=== PATIENT | male | born 1990 | race Caucasian/White ===

== ENCOUNTER 2021-07-23 12:40 | Emergency (ER) | payer OTHER, SELFPAY ==
[2021-07-23 12:47] VITALS: BP 127/73; PULSE 60; RESP 16; TEMP 35.8; O2SAT 98
[2021-07-23] MEDS: predniSONE 20 MG TABLET 60 MG PO (14:46)
[2021-07-23] MEDS: COLCHICINE 0.6 MG TABLET PO (14:46)
[2021-07-23] MEDS: KETOROLAC 30 MG/ML VIAL 15 MG IM (14:46)
--- NOTE | 2021-07-23 14:52 | ED.EXTPRO ---
HPI - Extremity Problem <JENNY Wright - Last Filed: 07/23/21 14:57> General Chief complaint: Extremity Problem,Nontraumatic Stated complaint: Thinks has terftoe? wants foot checked Time Seen by Provider: 07/23/21 14:19 Source: patient Mode of arrival: Ambulatory History of Present Illness HPI Narrative: This is a 31-year-old male with a history of gout in the past who presents to the emergency department complaining of tenderness to right great toe MTP joint. Patient states that he has the [employer], was not able to get into [employer] [facility] was cleared for his one month trip which leaves in three days but has not been evaluated if he is fit for duty for this flare. Patient states that his last gout flare was approximately one year ago, he is mostly vegetarian, states that he does not drink much alcohol, does not know how this is flaring. He denies taking any allopurinol or medication for prevention at home. Patient states that it has been bothersome for the last 1-2 weeks, and he has not been able to get into [facility]. Patient denies any trauma, denies infection, fever, weakness, sensation changes, or other complaint. Related Data Previous Rx's Medication Instructions Recorded colchicine 0.6 mg tablet 0.6 mg PO DAILY #30 tab 07/23/21 ibuprofen 800 mg tablet 800 mg PO Q8H PRN #20 tab 07/23/21 prednisone 50 mg tablet 50 mg PO DAILY #5 tab 07/23/21 Allergies Allergy/AdvReac Type Severity Reaction Status Date / Time No Known Drug Allergies Allergy Verified 07/23/21 12:47 Review of Systems <JENNY Wright - Last Filed: 07/23/21 14:57> Review of Systems Narrative: General: denies fever, chills, malaise, sweats, fatigue Head/Neck: denies headache, neck pain, dizziness Eyes: denies visual changes, eye pain Cardio: denies chest pain, palpitations, edema Respiratory: denies dyspnea, cough, orthopnea GI: denies abdominal pain, nausea, vomiting, or diarrhea : denies dysuria, hematuria, urinary retention, frequency or incontinence MSK: Endorses right MTP joint pain, denies any sensation changes or muscle weakness Skin: denies rash, itching, skin lesions or other Neuro: denies numbness, tingling Patient History <JENNY Wright - Last Filed: 07/23/21 14:57> Social History Smoking Status: Never smoker Smoking Status: Never smoker alcohol intake frequency: holidays/special occasions only Substance Use Type: does not use Exam <JENNY Wright - Last Filed: 07/23/21 14:57> Narrative Exam Narrative: Independently reviewed vitals signs and nursing notes. General: cooperative, comfortable, in no acute distress, well groomed Head: atraumatic, symmetrical facial expressions Neck: supple Eyes: equal round and reactive, EOMI, conjunctiva normal Nose: nares patent, no rhinorrhea Mouth/Throat: moist mucus membranes Cardiovascular: regular rate and rhythm, no peripheral edema, warm extremities Respiratory: normal effort, able to speak in complete sentences, no audible wheezing, stridor, or rales. No retractions or tachypnea. GI: abdomen soft, nontender to palpation, nondistended, no masses, no exquisite tenderness with exam, without guarding or rebound. MSK: moves all extremities, neurovascularly intact, no weakness, normal tone, mild erythema over right MTP of his great toe, flexion and extension are both intact, mild popping with movement of the joint, no deformity, no fluctuance, cap refill is brisk, no tenderness distal to the MTP joint or onto his midfoot Skin: brisk capillary refill, no rash, no erythema Neuro: normal speech and cognition, A&O x3 Psych: mental status is grossly normal, congruent mood, normal affect, pleasant and cooperative Initial Vital Signs Initial Vital Signs: Vital Signs Temperature 96.5 F L 07/23/21 12:47 Pulse Rate 60 07/23/21 12:47 Respiratory Rate 16 07/23/21 12:47 Blood Pressure 127/73 07/23/21 12:47 Pulse Oximetry 98 07/23/21 12:47 Course <JENNY Wright - Last Filed: 07/23/21 14:57> Orders Ordered: Discontinued Medications Colchicine (Colchicine 0.6 Mg Tablet) 0.6 mg PO NOW ONE Stop: 07/23/21 14:29 Last Admin: 07/23/21 14:46 Dose: 0.6 mg Documented by: KRISHNA Ketorolac Tromethamine (Ketorolac 30 Mg/Ml Vial) 15 mg IM NOW ONE Stop: 07/23/21 14:29 Last Admin: 07/23/21 14:46 Dose: 15 mg Documented by: KRISHNA Prednisone (Prednisone 20 Mg Tablet) 60 mg PO NOW ONE Stop: 07/23/21 14:29 Last Admin: 07/23/21 14:46 Dose: 60 mg Documented by: KRISHNA Vital Signs Vital signs: Vital Signs - 8 hr 07/23/21 12:47 Temperature 96.5 F L Pulse Rate 60 Respiratory Rate 16 Blood Pressure 127/73 Pulse Oximetry 98 MDM - Extremity (Nontraumatic) <JENNY Wright - Last Filed: 07/23/21 14:57> MDM Narrative Medical decision making narrative: This is a 31-year-old male with history of gout who presents to the emergency department with vague about flare of his right hallux MTP joint. Patient is recommended to follow-up for clearance from [facility] prior to his trip in three days, he was prescribed prednisone for five days, colchicine, given Toradol in the emergency department and a prescription of ibuprofen for pain. Patient understands his discharge instructions, patient does not have any other joint flares there are no signs of cellulitis or abscess, patient's range of motion is intact without neurovascular deficit. Patient is appropriate and amenable to discharge home. Vital signs are stable on repeat examination is unremarkable. Patient has been informed of results. Patient has been given strict return to ER precautions for any new or worsening symptoms. Patient understands to follow up closely with outpatient providers as instructed. Patient understands plan and agrees to discharge home. All questions and concerns answered at this time. Discharge Plan Departure Patient Disposition: Home Clinical Impression: Gout attack Qualifiers: Gout site: foot Gout etiology: unspecified cause Laterality: right Qualified Code(s): M10.9 - Gout, unspecified Instructions: Gout Activity Restrictions/Additional Instructions: *You have been diagnosed with gout. Please see [facility] for clearance prior to your trip on Wednesday. You will likely start feeling better in the next few hours or at least by tomorrow. Please use ibuprofen as needed starting tomorrow take it with food and water. Please avoid alcohol preserved meets, and things known to cause gout flares for you. Please take the steroids for the next five days, follow-up needing medical, use ibuprofen as necessary severe pain, and please continue taking colchicine for as long as it is helpful. *What to do: *Please continue to take your regular medications as directed. [x ] New medication prescriptions sent to your pharmacy: [ [facility]] [ ] New medication written as a paper prescription [ ] No new medications given *Please follow up with your primary care provider in 2-3 days, call for an appointment. Let them know you were seen in the Emergency Department and that we asked that you be seen for follow-up. We will electronically transmit a record of today's note if your PCP is in our system *If you do not have a primary care provider please contact [phone] to establish care with one of the [facility] primary care providers. *Return to Emergency Department if you should have any new, worsening or concerning symptoms, such as [fever greater than 101F, chills, worsening pain, persistent vomiting or other bothersome symptoms] Prescriptions: New colchicine 0.6 mg tablet 0.6 mg PO DAILY Qty: 30 0RF Rx Instructions: Please take two tabs each day for the 1st 1-3 days, and then one tab thereafter until your symptoms are resolved. You should have enough in case this flares back up again. prednisone 50 mg tablet 50 mg PO DAILY Qty: 5 0RF ibuprofen 800 mg tablet 800 mg PO Q8H PRN (Reason: pain) Qty: 20 0RF Rx Instructions: Please take with food and water starting tomorrow Referrals: Miscellaneous,Doctor, [Primary Care Provider] -
== END 2021-07-23 15:08 | disposition home or self-care (01) ==
PROVIDERS: Emergency Provider Nurse Practitioner Critical Care Medicine
DX: M10.9 Gout, unspecified (principal)
CPT/HCPCS: 96372; 99283; 99284; J1885

== ENCOUNTER 2021-09-28 22:04 | Emergency (ER) | payer OTHER, SELFPAY ==
[2021-09-28 22:08] VITALS: BP 126/88; PULSE 55; RESP 18; O2SAT 97; BMI 29.4
--- NOTE | 2021-09-28 22:11 | DI.RAD.S_ITS ---
PROCEDURE: XR SHOULDER RT MIN 2V INDICATIONS: pain TECHNIQUE: 3 views of the shoulder were acquired. COMPARISON: None. FINDINGS: Bones: No acute fractures or dislocations. There is deformity of the proximal humeral shaft consistent with sequelae of a prior fracture. No suspicious bony lesions. Visualized ribs appear intact. Soft tissues: No suspicious soft tissue calcifications. IMPRESSION: 1. No acute fracture or dislocation. Dictated by: Desean West M.D. on 09/28/2021 at 23:31 Approved by: Desean West M.D. on 09/28/2021 at 23:31
--- NOTE | 2021-09-29 | ED.UPPEXIN ---
HPI - Extremity Injury (Upper) General Chief Complaint: Extremity Injury, Upper Stated Complaint: Right shoulder injury Time Seen by Provider: 09/28/21 23:55 Source: patient Mode of arrival: Ambulatory History of Present Illness HPI narrative: Patient injured his right shoulder 1 week ago. He exercises with weights. He was doing lifts/snatch with heavy weights than usual. Complains of right anterior shoulder pain. Patient is left handed. No numbness or tingling or weakness to the hands. Has full active range of motion but increased pain with forward flexion. Related Data Previous Rx's Medication Instructions Recorded colchicine 0.6 mg tablet 0.6 mg PO DAILY #30 tabs 07/23/21 ibuprofen 800 mg tablet 800 mg PO Q8H PRN pain #20 tabs 07/23/21 prednisone 50 mg tablet 50 mg PO DAILY #5 tabs 07/23/21 Allergies Allergy/AdvReac Type Severity Reaction Status Date / Time No Known Drug Allergies Allergy Verified 07/23/21 12:47 Review of Systems Review of Systems Narrative: GENERAL: Denies chills, fatigue, malaise, fever, sweats. HEENT: Denies sinus pain, ear pain, sore throat RESPIRATORY: Denies dyspnea, cough CARDIOVASCULAR: Denies chest pain, palpitations GASTROINTESTINAL: Denies nausea, vomiting, abdominal pain : Denies dysuria, frequency, hematuria MUSCULOSKELETAL: Positive for muscle or bony pain SKIN: Denies rash, skin lesions NEUROLOGIC: Denies weakness, numbness ROS Unobtainable: All systems reviewed & are unremarkable except as noted in HPI and below Patient History Social History Smoking Status: Never smoker Smoking Status: Never smoker alcohol intake frequency: holidays/special occasions only Substance Use Type: does not use Exam Narrative Exam Narrative: GENERAL: in no distress, not toxic not dyspneic HEAD: Normocephalic. EYES: Pupils equal round No scleral icterus. EXTREMITIES: No gross deformities. Right shoulder to fingers exposed. Nontender elbow wrist and hand. Strong assisted living administrator and radial pulse. Mild tenderness to the anterior shoulder/proximal biceps. Able to fully raise hand above his head behind his back. Increased pain with forward flexion but no pain with abduction or adduction. Able to flex fully at the elbow and fully extend. No gross deformity of the shoulder or biceps. NEURO: AOx4. SKIN: Warm and dry PSYCH: Not anxious, is cooperative Initial Vital Signs Initial Vital Signs: Vital Signs Pulse Rate 55 L 09/28/21 22:08 Respiratory Rate 18 09/28/21 22:08 Blood Pressure 126/88 09/28/21 22:08 Pulse Oximetry 97 09/28/21 22:08 Oxygen Delivery Method 09/28/21 22:08 Course Course Course Narrative: No new issues during course stay Orders Ordered: ED Orders 09/28/21 22:11 XR shoulder RT min 2V Stat Reevaluation(s) Reevaluation #1: Reviewed x-ray with patient. At this time encouraged no working out with shoulder muscle group until seen by provider or has resolution of pain. Time: 00:05 Vital Signs Vital signs: Vital Signs - 8 hr 09/28/21 22:08 09/29/21 00:11 Pulse Rate 55 L 70 Respiratory Rate 18 18 Blood Pressure 126/88 118/65 Pulse Oximetry 97 97 Oxygen Delivery Method Room Air Room Air MDM - Extremity Injury (Upper) Differential Diagnosis Differential diagnosis: Likely dislocation of shoulder and other (Muscle strain/rotator cuff injury) Imaging Data Extremity x-ray #1: Radiologist's Impression: [address] [address]PI[place] ReportSigned Patient: Jose Alejandro Harley [facility]#: [id number]: 1990Acct:[id number]/Sex: 31 / MDate of Service: 09/28/21Loc: EDAccession Number: [id number] Procedure: XR shoulder RT min 2V Ordering Provider: Joe Weiss MD PROCEDURE: XR SHOULDER RT MIN 2V INDICATIONS: pain TECHNIQUE: 3 views of the shoulder were acquired. COMPARISON: None. FINDINGS: Bones: No acute fractures or dislocations. There is deformity of the proximal humeral shaft consistent with sequelae of a prior fracture. No suspicious bony lesions. Visualized ribs appear intact. Soft tissues: No suspicious soft tissue calcifications. IMPRESSION: 1. No acute fracture or dislocation. Dictated by: Desean West M.D. on 09/28/2021 at 23:31 Approved by: Desean West M.D. on 09/28/2021 at 23:31 [facility] Narrative Medical decision making narrative: Appropriate for discharge home. Exam and imaging are reassuring. Likely muscle strain. Neurovascularly intact. Return precautions reviewed with patient. Orthopedic referral given Discharge Plan Departure Patient Disposition: Home Clinical Impression: Muscle strain of right shoulder region Instructions: DI for Muscle Strain Activity Restrictions/Additional Instructions: Call provided orthopedic office tomorrow for office recheck this week. At this time continue resting this muscle to prevent further injury. No working out on this muscle area. May continue ibuprofen or Tylenol for pain. Return if worse if any questions or concerns Prescriptions: No Action colchicine 0.6 mg tablet 0.6 mg PO DAILY Qty: 30 0RF Rx Instructions: Please take two tabs each day for the 1st 1-3 days, and then one tab thereafter until your symptoms are resolved. You should have enough in case this flares back up again. prednisone 50 mg tablet 50 mg PO DAILY Qty: 5 0RF ibuprofen 800 mg tablet 800 mg PO Q8H PRN (Reason: pain) Qty: 20 0RF Rx Instructions: Please take with food and water starting tomorrow Referrals: Ginger Mcarthur MD [Physician] - Miscellaneous,MD Rosangela [Primary Care Provider] - Visit Report Forms: Patient Portal/API
[2021-09-29 00:11] VITALS: BP 118/65; PULSE 70; RESP 18; O2SAT 97
== END 2021-09-29 00:12 | disposition home or self-care (01) ==
PROVIDERS: Emergency Provider Emergency Medicine
DX: S46.911A Strain of unspecified muscle, fascia and tendon at shoulder and upper arm level, right arm, initial encounter (principal); X50.0XXA Overexertion from strenuous movement or load, initial encounter
CPT/HCPCS: 73030; 99281; 99283